=== PATIENT | male | born 1965 | race Caucasian/White ===

== ENCOUNTER 2024-04-16 05:30 | Day surgery (SDC) | payer OTHER ==
[2024-04-10 15:13] VITALS: BP 117/75
[~2024-04-16] VITALS: Ht 185.4 cm; Wt 106.8 kg
[~2024-04-16 05:30] MED LIST: AMLODIPINE BESYL5 MG PO; LACTATED RINGER'S 1,000 ML IV SCH; OMEPRAZOLE20 MG PO; ZESTRIL40 MG PO
[2024-04-16] MEDS ORDERED: Ropivacaine HCl 20 MG/10 ML AMP ONE (06:01)
[2024-04-16 06:05] VITALS: BP 128/85
[2024-04-16] MEDS ORDERED: SODIUM CHLORIDE 0.9% 40 ML IV ONE (06:15)
[2024-04-16] MEDS ORDERED: dexmedeTOMIDine HCl 200 MCG/2 ML VIAL ONE (06:15)
[2024-04-16] MEDS ORDERED: DEXAMETHASONE SOD PHOS 4 MG/ML VIAL ONE (06:15)
[2024-04-16] MEDS ORDERED: propofoL 200 MG/20 ML VIAL ONE ×2 (06:15→07:12)
[2024-04-16] MEDS ORDERED: Ropivacaine HCl 0.5% 30 ML VIAL ONE (06:15)
[2024-04-16] MEDS ORDERED: LIDOCAINE HCL 2% 5 ML SDV ONE ×2 (06:15→07:02)
[2024-04-16] MEDS ORDERED: MIDAZOLAM HCL 2 MG/2 ML VIAL ONE (06:16)
[2024-04-16] MEDS ORDERED: HYDROmorphone HCL 4 MG TAB PO PRN (06:45)
[2024-04-16] MEDS ORDERED: KETOROLAC TROMETHAMINE 30 MG/ML VIAL IV PRN (06:45)
[2024-04-16] MEDS ORDERED: ACETAMINOPHEN 500 MG TAB PO SCH ×2 (07:00→15:00)
[2024-04-16] MEDS ORDERED: ondansetron HCL 4 MG TAB PO SCH (07:00)
[2024-04-16] MEDS ORDERED: GABAPENTIN 600 MG TAB PO SCH (07:00)
[2024-04-16] MEDS ORDERED: IBLOOD GLUCOSE TEST STRIP 1 EA TEST VI PRN (07:00)
[2024-04-16] MEDS ORDERED: PANTOPRAZOLE SODIUM 40 MG TABEC PO SCH (07:00)
[2024-04-16] MEDS ORDERED: TRANEXAMIC ACID 2,000 MG in SODIUM CHLORIDE 0.9% 100 ML IV SCH (07:00)
[2024-04-16] MEDS ORDERED: OXYCODONE HCL 5 MG TAB PO SCH (07:00)
[2024-04-16] MEDS ORDERED: LIDOCAINE HCL 1% 5 ML SDV INJ ONE (07:00)
[2024-04-16] MEDS ORDERED: ROPIVACAINE IN 0.9% SOD CHL/PF 545 ML ELS.PMP.HR IRRIGATION SCH (07:00)
[2024-04-16] MEDS ORDERED: INTRA-ARTICULAR ANALGESIC INJECTION XX SCH (07:00)
[2024-04-16] MEDS ORDERED: CEFAZOLIN SODIUM 2 GM/20 ML SYR IV SCH ×2 (07:00→15:00)
[2024-04-16] MEDS ORDERED: ACETAMINOPHEN 1,000 MG/100 ML VIAL ONE (07:29)
[2024-04-16] MEDS ORDERED: KETOROLAC TROMETHAMINE 30 MG/ML VIAL ONE (07:39)
[2024-04-16] MEDS ORDERED: LACTATED RINGER'S 1,000 ML IV ONE ×2 (07:40→08:33)
[2024-04-16] MEDS ORDERED: KETAMINE in NS 50 MG/5 ML SYR ONE (07:43)
[2024-04-16] MEDS ORDERED: CEFUROXIME250 MG PO (08:41)
[2024-04-16] MEDS ORDERED: XARELTO10 MG PO (08:41)
[2024-04-16] MEDS ORDERED: ACETAMINOPHEN500 MG PO (08:42)
[2024-04-16] MEDS ORDERED: DICLOFENAC SODI75 MG PO (08:42)
[2024-04-16] MEDS ORDERED: SENNA LAX8.6 MG PO (08:42)
[2024-04-16] MEDS ORDERED: HYDROMORPHONE HC4 MG PO (08:42)
--- NOTE | 2024-04-16 08:57 | NUR ---
04/16/24 0857 Flory Lee 0850 PT TO PACU AWAKE AND ALERT DENIES PAIN AND NAUSEA.
[2024-04-16 09:16] VITALS: BP 109/71
--- NOTE | 2024-04-16 09:26 | NUR ---
Patient returns to room 7 from PACU. Patient is awake and talking upon arrival. Report taken from JORDYN Garcia. Patient reports minimal pain rating it a 2/10. He denies any nausea/vomiting. He is able to wiggle his toes and lift his legs off of the bed, but still only feels pressure to below the knee. Dressing to right knee clean, dry, and intact. On-Q intact and set at 4. Patient is drinking water and eating crackers. I explained the expectations while he is here and he expresses understanding. He denies any needs at this time. Fiance is at bedside. bed in lowest position and call light within reach
[2024-04-16] MEDS ORDERED: TRANEXAMIC ACID 2,000 MG in SODIUM CHLORIDE 0.9% 100 ML IV ONE (09:45)
--- NOTE | 2024-04-16 10:26 | OR ---
[facility] [address] [place], [place] [address] Signed DATE OF OPERATION: 04/16/2024 SURGEON: Marco A Lee MD PREOPERATIVE DIAGNOSIS: Degenerative joint disease, right knee. POSTOPERATIVE DIAGNOSIS: Degenerative joint disease, right knee. PROCEDURE PERFORMED: Right total knee arthroplasty with Delfino. MOTOR VEHICLE TECHNICIAN: Vilma Bull PA-C. Vilma was present for all portions of the procedure. ANESTHESIA: Spinal. BLOOD LOSS: 153 mL. TOURNIQUET TIME: Zero. IMPLANTS: Anderson Triathlon size 6, 11 mm polyethylene and a 35 mm patella. BRIEF HISTORY: Lynsey is a 58-year-old gentleman with progressive worsening of severe osteoarthritis in the knee. Nonoperative treatment was unsuccessful. He wished to proceed with operation. Risks and benefits of the operative treatment were discussed with him. He elected to proceed. DESCRIPTION OF PROCEDURE: Once consent was obtained, he was taken to the operating room after adequate anesthesia. He was placed on the operating room table. Hip bump was placed on the right and the leg was prepped and draped in a standard sterile fashion. The knee was approached through a standard anterior midline incision, carried through skin and subcutaneous tissue. A low mid vastus arthrotomy was performed and the infrapatellar fat pad was Electronically Signed By: MARCO A LEE MD 04/16/24 1026 PATIENT NAME: LYNSEY GONSALEZ OPERATIVE REPORT DATE OF : 67 REPORT #: [id number] PHYSICIAN: MARCO A LEE MD PCP: OTHER PCP REPORT IS CONFIDENTIAL AND NOT TO BE RELEASED WITHOUT AUTHORIZATION [facility] [address] [place], [place] [address] Signed excised. The MCL was then elevated as a sleeve around the posteromedial corner. Anterior horns of the menisci were transected, although they were minimal. ACL was transected. PCL was found to be intact. The navigation guides were placed in the medial femoral condyle and proximal tibia. The leg was then registered with the computer, followed by the fine anatomic points of the knee. The ligamentous balance was then assessed and the four poses were taken. The prosthesis was then adjusted to balance the ligaments. Once this was completed, the robot was brought in. The four straight cut, two angle cuts were made with care taken to protect the patellar tendon and MCL. The bony remnants were removed. The bone was extremely hard and there were some sections that were not amenable to cutting with the robot. We cut these with the osteotome and cleared the osteophytes with the rongeur. Once this was completed, the posterior osteophytes removed off the femur. Small posterior release was performed. The trials were then positioned with an 11 mm polyethylene. The knee was quite stable from 0-140 degrees of flexion with good tracking of the patella. The patella was cut sized and drilled for 35 mm patella. The distal femoral drill holes were completed and the proximal tibia was finished using the keel punch, followed by the four drill holes. The tibia was impacted into position. The 1st toe was flushed and well-seated. The polyethylene was snapped into position and the femur was impacted. The knee was extended and loaded. The patella was clamped into position, and again patellar tracking was checked and found to be well centered. The knee was then irrigated with one bottle of Surgiphor, followed by normal saline. The periarticular soft tissues were injected with 100 mL of ropivacaine and Toradol mixture. The On-Q pain pump was percutaneously placed into the adductor canal from the suprapatellar pouch. The arthrotomy was then closed using combination of #2 FiberWire and #2 StrataFix. Subcutaneous tissue with 0-StrataFix and skin with 3-0 StrataFix. The incision was then sealed with LiquiBand and Steri-Strips. The wound was dressed with Acticoat-7 dressing, ABD, and Von wrap. He tolerated the procedure well. All sponge, needle, and instrument counts correct. Marco A Lee MD BA/BRENNONL /[id number] Electronically Signed By: MARCO A LEE MD 04/16/24 1026 PATIENT NAME: LYNSEY GONSALEZ OPERATIVE REPORT DATE OF : 67 REPORT #: [id number] PHYSICIAN: MARCO A LEE MD PCP: OTHER PCP REPORT IS CONFIDENTIAL AND NOT TO BE RELEASED WITHOUT AUTHORIZATION [facility] [address] [place] [id number] Signed Copies: ~ Electronically Signed By: MARCO A LEE MD 04/16/24 1026 PATIENT NAME: LYNSEY GONSALEZ OPERATIVE REPORT DATE OF : 67 REPORT #: [id number] PHYSICIAN: MARCO A LEE MD PCP: OTHER PCP REPORT IS CONFIDENTIAL AND NOT TO BE RELEASED WITHOUT AUTHORIZATION
--- NOTE | 2024-04-16 10:26 | NUR ---
IN ROOM FOR PT ASSESSMENT AND VS. NO ACUTE CHANGES FROM PREVIOUS ASSESSMENT. PT REPORTS PAIN TOLERABLE AT 3/10 AT THIS TIME. PT ON RA W/O2 >90% VIA RA, RESPIRATIONS EVEN AND UNLABORED, NO SIGNS OF DISTRESS. SPINAL RESOLVED, PT STATES MINOR PRESSURE ABOVE RT ANKLE, BUT TOLERABLE. CALL LIGHT WITHIN REACH. PT STATES NO NAUSEA POST EATING FOOD. AT BEDSIDE.
[2024-04-16 10:28] VITALS: BP 122/82
--- NOTE | 2024-04-16 11:01 | NUR ---
GENOVEVA WITH PHYSICAL THERAPY IN ROOM WITH PT AT THIS TIME.
--- NOTE | 2024-04-16 11:35 | NUR ---
PT BACK FROM PHYSICAL THERAPY AND PER GENOVEVA Quiros/PHYSICAL THERAPY PT PASSED. OLU HUBBARD CALLED IN OR ROOM AND UPDATED THAT PT PASSED ALL REQUIREMENTS. VERBAL ORDER FOR ANCEF AND DC RECEIVED AT THIS TIME. PT UPDATED AND GETTING DRESSED. IN ROOM TO ASSIST. CALL LIGHT WITHIN REACH.
[2024-04-16 11:44] VITALS: BP 121/84
[2024-04-16] MEDS ORDERED: CEFAZOLIN SODIUM 2 GM/20 ML SYR IV ONE (11:45)
--- NOTE | 2024-04-16 11:45 | NUR ---
ANCEF GIVEN, VS TAKEN, DC EDUCATION PROVIDED. NO ACUTE CHANGES FROM PREVIOUS ASSESSMENT. PT REPORTS PAIN 3/10 POST AMBULATION W/PHYSICAL THERAPY. PT AND PT STATE VERBAL UNDERSTANDING TO DC EDUCATION AT THIS TIME AND NO FURTHER QUESTIONS. OLU HUBBARD REMINDED OF GABAPENTIN POST-OP ORDER NEEDED, STATES HE WILL FAX TO PHARMACY. PT OFF OF UNIT VIA WC TO PASSENGER SIDE OF 'S VEHICLE. PT REPORTS NO FURTHER NEEDS AT THIS TIME. ALL BELONGINGS IN PT POSSESSION AT THIS TIME. PT DEMONSTRATES CORRECT IS USE X1. ICE PACK PROVIDED.
[2024-04-16] MEDS ORDERED: GABAPENTIN300 MG PO (12:16)
[2024-04-16] MEDS ORDERED: GABAPENTIN 300 MG CAP PO SCH (15:00)
[2024-04-16] MEDS ORDERED: SENNOSIDES 1 TAB PO SCH (21:00)
[2024-04-17] MEDS ORDERED: Rivaroxaban 10 MG TAB PO SCH (08:00)
[2024-04-17] MEDS ORDERED: cefuroxime axetiL 250 MG TAB PO SCH (09:00)
[2024-04-17] MEDS ORDERED: DICLOFENAC SOD 75 MG TABEC PO SCH (17:00)
== END 2024-04-16 11:55 | disposition home or self-care (01) ==
LOC: DS 05:30
PROVIDERS: ATTEND Specialist
PROC: 0SRC0JZ Replacement of Right Knee Joint with Synthetic Substitute, Open Approach (ICD-10-PCS; principal; 2024-04-16 07:00)
DX: M17.11 Unilateral primary osteoarthritis, right knee (principal); Z88.8 Allergy status to other drugs, medicaments and biological substances; I10 Essential (primary) hypertension; K21.9 Gastro-esophageal reflux disease without esophagitis; Z79.899 Other long term (current) drug therapy
CPT/HCPCS: 01400; 64447; 64450; 64454; 73560; 76942; 97161; A9270; C1713; C1776; J0131; J0690; J1100; J1885; J2003; J2250; J2704; J2795; J3490; J7121; J7999